=== PATIENT | male | born 1975 | race Caucasian/White ===

== ENCOUNTER → 2018-10-04 | Outpatient (CLI) | payer OTHER ==
[~2018-10-04] MED LIST: ANAPROX; HYDROCODON-ACE1 EAC7; NORCO 5-325 TA1 EACH PO
== END ==
LOC: ULTRA 10:20
DX: I86.1 Scrotal varices (principal)

== ENCOUNTER → 2019-06-13 | Outpatient (CLI) | payer OTHER | LOC: CAT 08:31 | DX: Z13.6 Encounter for screening for cardiovascular disorders (principal); E78.00 Pure hypercholesterolemia, unspecified; I25.10 Atherosclerotic heart disease of native coronary artery without angina pectoris ==